=== PATIENT | male | born 1955 | race Caucasian/White ===

== ENCOUNTER 2019-06-19 10:26 | Day surgery (SDC) | payer OTHER ==
[2019-06-18 12:53] VITALS: BMI 38.7
[~2019-06-19 10:26] MED LIST: GENTAMICIN SO4 80 MG/2 ML VIAL IVPB ONE
[2019-06-19] MEDS ORDERED: PROPOFOL 20 ML ONE ×2 (13:29→15:32)
[2019-06-19] MEDS ORDERED: MIDAZOLAM HCL 2 MG/2 ML SINGLE DOSE VIAL ONE ×2 (13:29→13:45)
[2019-06-19] MEDS ORDERED: ceFAZolin SODIUM 1 GM VIAL IVPB ONE (14:44)
[2019-06-19] MEDS ORDERED: oxyCODONE HCL 5 MG TABLET PO PRN (15:42)
[2019-06-19] MEDS ORDERED: ACETAMINOPHEN 325 MG TABLET (FP) PO PRN (15:42)
[2019-06-19] MEDS ORDERED: ONDANSETRON 4 MG/2 ML VIAL IVPUSH PRN (15:42)
--- NOTE | 2019-06-19 16:04 | OP ---
Operative Note - Note: Operative Date: 06/19/19 Pre-Operative Diagnosis: Bladder stone and BPH w/ obstruction Operation: Cystoscopy/TUVP/TURP Findings: Trilobor hypertrophy of prostate/lateral lobe kissing/grade II trabeculation of bladder. No stone visualized. Post-Operative Diagnosis: Same as Pre-op Surgeon: Ochoa Hayes Anesthesia: Spinal Specimens Removed: Urine and prostate chips Drains & Tubes with Location: [address] 30 [address] cordova w/ CBI Operative Report Dictated: Yes
--- NOTE | 2019-06-19 18:56 | CONS ---
DATE OF CONSULTATION: DATE OF DICTATION: 06/19/2019 HISTORY: Patient is a 63-year-old with a history of prostatism including frequency, urgency, hesitancy, terminal dribbling, and feelings of incomplete bladder emptying. He did undergo a cysto laser vaporization in 2016. A repeat cystoscopy in the office revealed recurrent prostatic hypertrophy with a 2-cm bladder stone. There was also a grade 2 trabeculation of the bladder. Therefore, the patient is admitted to undergo a cystourethroscopy, cysto laser lithotripsy, and vaporization of the prostate. He does have history of hepatitis C. ALLERGIES: He denies any allergies. PAST MEDICAL HISTORY: He denies any diabetes, hypertension, COPD, atrial fibrillation, coronary artery disease, or dyslipidemia. Has underneath meniscal surgery of the right knee. MEDICATIONS: Presently he is on Flomax and Myrbetriq. PHYSICAL EXAMINATION: General: Reveals a well-developed, adult male in no apparent distress. Neck: Supple. There is no JVD. Chest: Clear to auscultation and percutaneous. Heart: Regular rhythm. Abdomen: Soft, globus, nontender. No organomegaly. Bowel sounds are normoactive. The bladder is not distended. Genitourinary: Genitalia are those of a normal adult male. Meatus adequate. Testes normal in size and consistency. No hernias or hydroceles are evident. Extremities: Reveal full range of motion with no clubbing, cyanosis, or edema. A urinalysis was positive for blood. A cystoscopy performed on March 10, 2019, revealed a 2-cm bladder stone with a large, recurrent, obstructing prostate gland and a grade 2 bladder trabeculation. Presently, the prostate is 2+, smooth, benign, and nontender. Saddle sensation is present. Bulbocavernosus reflex is brisk. The patient's BUN 11, creatinine 0.8. His PSA is 2.88. IMPRESSION: At present is symptomatic benign prostatic hypertrophy with a large bladder stone. PLAN: Cystourethroscopy, cysto laser lithotripsy, and transurethral vaporization of the prostate. This was explained fully and in detail with the patient, and he agrees. Hitesh [id number]
--- NOTE | 2019-06-19 18:56 | OP ---
DATE OF OPERATION: 06/19/2019 PREOPERATIVE DIAGNOSIS: Bladder stone, prostatic hypertrophy with obstruction. POSTOPERATIVE DIAGNOSIS: Prostate hypertrophy with obstruction, no stones seen. OPERATIVE PROCEDURE: Under general anesthesia, patient prepped and draped in the usual sterile manner. He is placed in the dorsal lithotomy position. Cystoscopy was performed under direct vision. Urethra was within normal limits. Prostatic urethra revealed trilobar hypertrophy of the prostate. There was lateral lobe kissing. The bladder was entered. The urine was collected for culture as well as cytology. Inspection of the bladder revealed a grade 2-3 trabeculation throughout. No lesions were noted, no calculi were seen. Extensive exploration was performed looking for a bladder stone but none was seen. Therefore, a resectoscope was inserted. The prostate was resected in the usual fashion from the 6 o'clock position to the 12 o'clock position of the right lateral lobe. Lastly, the median lobe was resected from the 6 o'clock position to the 12 o'clock position. The median lobe was also resected. Prostate chips were evacuated with an Ellik evacuator. Hemostasis was secured with electrocoagulation. The bladder was emptied, scope was removed. The 24-Kenyan, 30-cc, 3-way Jon was inserted. This was connected to continuous bladder irrigation. The patient tolerated the procedure well. He returned to the recovery room in good condition. Hitesh [id number]
[2019-06-19] MEDS: LACTATED RINGERS SOLUTION 1,000 ML IV SCH (20:52)
[2019-06-20] MEDS: LACTATED RINGERS SOLUTION 1,000 ML IV SCH (05:48)
[2019-06-20] MEDS: oxyCODONE HCL 5 MG TABLET PO PRN ×2 (05:49→11:25)
[2019-06-20 15:41] VITALS: BP 137/97; PULSE 62; TEMP 98.9
--- NOTE | 2019-06-25 11:08 | PATH ---
Surgical Pathology Report Patient Name: TYREL IGLESIAS [facility]. Rec. #: [id number] /Age/Gender: 1955 (Age: 63) / M Account: [id number] Location: AMBULATORY SURG Taken: 06/19/2019 Received: 06/22/2019 Reported: 06/25/2019 Physicians: Rhea Hayes Specimen(s) Received PROSTATE CHIPS Clinical History Hypertrophy of prostate/bladder stone Final Diagnosis PROSTATE CHIPS, TRANSURETHRAL RESECTION OF THE PROSTATE: BENIGN PROSTATIC TISSUE WITH GLANDULAR AND STROMAL HYPERPLASIA, ACUTE AND CHRONIC PROSTATITIS. ADJACENT UROTHELIAL MUCOSA WITH CHRONIC INFLAMMATION. Electronically Signed Sally De Leon M.D. Gross Description Received in formalin labeled "prostate chips," is a 6 g, 6.5 x 5.5 x 0.6 cm aggregate of multiple graham, firm to rubbery portions of tissue, consistent with prostate chips. The specimen is entirely submitted in 6 cassettes. /06/22/2019 saudi06/22/2019
== END 2019-06-20 16:00 | disposition home or self-care (01) ==
LOC: JASUSAT 10:26 → JASU-SURG 10:26 → J5S 18:29 → JASUSAT 06-20 16:00
PROVIDERS: ATTEND Urology
PROC: 0VT08ZZ Resection of Prostate, Via Natural or Artificial Opening Endoscopic (ICD-10-PCS; principal; 2019-06-19 13:00)
DX: N40.1 Benign prostatic hyperplasia with lower urinary tract symptoms (principal)
CPT/HCPCS: 94010; 94760

== ENCOUNTER 2021-05-31 05:08 | Emergency (ER) | payer OTHER ==
[2021-05-31 05:34] VITALS: BMI 41.6
[2021-05-31 06:39] LABS: BASO % 0.7 % (0-2.0); EOS % 3.4 % (0-4.5); HEMATOCRIT 43.9 % (35.4-49); LYMPH % 37.6 % (8-40); MCH 30.2 pg (25.7-33.7); MCHC 34.2 g/dl (32.0-35.9); MEAN CELL VOLUME 88.3 fl (80-96); MEAN PLT VOLUME 8.3 fl (7.5-11.1); MONO % 7.5 % (3.8-10.2); NEUT % 50.8 % (42.8-82.8); PLATELET COUNT 197 10^3/uL (134-434); RBC 4.97 M/mm3 (4.00-5.60); RDW 12.8 % (11.9-15.9); WHITE BLOOD COUNT 6.2 K/mm3 (4.0-10.0)
[2021-05-31 06:41] LABS: EPI CELLS 1 /uL (0-25.1); HYALINE CASTS 1 /uL (0-3.1); URINE APPEARANCE CLEAR; URINE BACTERIA 0 /uL (0-1359); URINE BILIRUBIN NEGATIVE (NEGATIVE); URINE COLOR YELLOW; URINE GLUCOSE (UA) NEGATIVE (NEGATIVE); URINE KETONE NEGATIVE (NEGATIVE); URINE LEUK ESTERASE NEGATIVE (NEGATIVE); URINE NITRITE NEGATIVE (NEGATIVE); URINE PROTEIN NEGATIVE (NEGATIVE); URINE RBC 675 /uL (0-23.9); URINE UROBILINOGEN 0.2 mg/dL (0.2-1.0); URINE WBC 5 /uL (0-25.8)
[2021-05-31 06:59] LABS: CALCIUM 8.7 mg/dL (8.5-10.1)
[2021-05-31 07:00] LABS: ALBUMIN 3.8 g/dl (3.4-5.0); BLOOD UREA NITROGEN 13.8 mg/dL (7-18)
[2021-05-31 07:03] LABS: CREATININE 0.7 mg/dL (0.55-1.3)
[2021-05-31 07:05] LABS: BILIRUBIN,TOTAL 0.5 mg/dL (0.2-1); TOT PROT 7.3 g/dl (6.4-8.2)
[2021-05-31 12:03] VITALS: BP 146/87; PULSE 62; TEMP 97.7
== END 2021-05-31 12:04 | disposition home or self-care (01) ==
LOC: JER 05:08
DX: R31.9 Hematuria, unspecified (principal)
CPT/HCPCS: 36415; 74176-TC; 80053; 81003; 85025; 87086; 99284-25

== ENCOUNTER 2021-10-16 23:01 | Inpatient (IN) | payer OTHER ==
[2021-10-16] MEDS ORDERED: ASPIRIN 81 MG CHEWABLE TABLETS PO ONE (23:37)
[2021-10-17] MEDS ORDERED: ASPIRIN 81 MG CHEWABLE TABLETS ONE ×2 (00:07→03:59)
[2021-10-17 00:10] LABS: BASO % 0.3 % (0-2.0); EOS % 0.7 % (0-4.5); HEMATOCRIT 44.3 % (35.4-49); HEMOGLOBIN 15.1 GM/dL (11.7-16.9); MCH 29.6 pg (25.7-33.7); MCHC 34.1 g/dl (32.0-35.9); MEAN CELL VOLUME 86.6 fl (80-96); MEAN PLT VOLUME 8.6 fl (7.5-11.1); MONO % 7.3 % (3.8-10.2); NEUT % 75.7 % (42.8-82.8); PLATELET COUNT 213 10^3/uL (134-434); RBC 5.12 M/mm3 (4.00-5.60); RDW 13.2 % (11.9-15.9); WHITE BLOOD COUNT 11.2 K/mm3 (4.0-10.0)
[2021-10-17 00:34] LABS: BLOOD UREA NITROGEN 14.6 mg/dL (7-18); CALCIUM 8.9 mg/dL (8.5-10.1)
[2021-10-17 00:35] LABS: CREATININE 0.6 mg/dL (0.55-1.3)
[2021-10-17 00:37] LABS: BILIRUBIN,TOTAL 0.6 mg/dL (0.2-1); TOT PROT 7.8 g/dl (6.4-8.2)
[2021-10-17 00:44] LABS: INR 1.03 (0.83-1.09); PROTHROMBIN TIME (PATIENT) 11.8 SEC (9.7-13.0)
[2021-10-17 00:45] LABS: ACTIVATED PTT 32.6 SECONDS (25.2-36.5)
[2021-10-17] MEDS ORDERED: IBUPROFEN 400 MG TABLET (FP) PO ONE ×2 (02:14→02:23)
[2021-10-17] MEDS ORDERED: ASPIRIN 81 MG CHEWABLE TABLETS PO ONE (03:43)
[2021-10-17] MEDS ORDERED: SODIUM CHLORIDE 1,000 ML IV STA (03:53)
[2021-10-17] MEDS ORDERED: SODIUM CHLORIDE 1,000 ML IV SCH (04:15)
[2021-10-17] MEDS ORDERED: COLCHICINE 0.6 MG TAB ONE ×2 (04:25→09:39)
[2021-10-17] MEDS: COLCHICINE 0.6 MG TAB PO SCH ×3 (04:29→22:35)
[2021-10-17] MEDS ORDERED: IBUPROFEN 600 MG TABLET (FP) PO ONE ×2 (06:29→14:10)
[2021-10-17] MEDS: IBUPROFEN 600 MG TABLET (FP) PO SCH ×3 (06:35→22:35)
[2021-10-17 08:59] LABS: BLOOD UREA NITROGEN 13.5 mg/dL (7-18)
[2021-10-17 09:00] LABS: ALBUMIN 3.6 g/dl (3.4-5.0)
[2021-10-17 09:01] LABS: CREATININE 0.7 mg/dL (0.55-1.3)
[2021-10-17 09:04] LABS: TOT PROT 6.8 g/dl (6.4-8.2)
[2021-10-17 23:02] VITALS: BMI 42.0
[2021-10-18] MEDS: IBUPROFEN 600 MG TABLET (FP) PO SCH ×3 (05:56→21:31)
[2021-10-18 07:25] LABS: BASO % 0.4 % (0-2.0); EOS % 0.8 % (0-4.5); HEMATOCRIT 39.7 % (35.4-49); HEMOGLOBIN 13.3 GM/dL (11.7-16.9); LYMPH % 16.4 % (8-40); MCH 29.6 pg (25.7-33.7); MCHC 33.6 g/dl (32.0-35.9); MEAN CELL VOLUME 88.3 fl (80-96); MEAN PLT VOLUME 8.8 fl (7.5-11.1); MONO % 11.5 % (3.8-10.2); NEUT % 70.9 % (42.8-82.8); PLATELET COUNT 184 10^3/uL (134-434); RBC 4.49 M/mm3 (4.00-5.60); RDW 13.6 % (11.9-15.9); WHITE BLOOD COUNT 10.7 K/mm3 (4.0-10.0)
[2021-10-18 07:53] LABS: CALCIUM 8.4 mg/dL (8.5-10.1)
[2021-10-18 07:55] LABS: MAGNESIUM 2.2 mg/dL (1.8-2.4)
[2021-10-18 07:57] LABS: CREATININE 0.7 mg/dL (0.55-1.3); PHOSPHOROUS 2.5 mg/dL (2.5-4.9)
[2021-10-18 08:18] LABS: INR 1.12 (0.83-1.09); PROTHROMBIN TIME (PATIENT) 12.9 SEC (9.7-13.0)
[2021-10-18] MEDS: COLCHICINE 0.6 MG TAB PO SCH ×2 (09:41→21:31)
[2021-10-18] MEDS: HEPARIN NA (PORCINE) 5,000 UNITS/ML 1ML VIAL SQ SCH ×2 (14:29→21:31)
[2021-10-19] MEDS: HEPARIN NA (PORCINE) 5,000 UNITS/ML 1ML VIAL SQ SCH ×3 (06:17→22:17)
[2021-10-19] MEDS: IBUPROFEN 600 MG TABLET (FP) PO SCH ×3 (06:17→22:18)
[2021-10-19 07:31] LABS: BASO % 0.3 % (0-2.0); EOS % 1.9 % (0-4.5); HEMATOCRIT 37.8 % (35.4-49); HEMOGLOBIN 12.7 GM/dL (11.7-16.9); LYMPH % 22.6 % (8-40); MCH 29.6 pg (25.7-33.7); MCHC 33.6 g/dl (32.0-35.9); MEAN CELL VOLUME 87.9 fl (80-96); MONO % 9.1 % (3.8-10.2); NEUT % 66.1 % (42.8-82.8); PLATELET COUNT 219 10^3/uL (134-434); RDW 13.5 % (11.9-15.9); WHITE BLOOD COUNT 8.7 K/mm3 (4.0-10.0)
[2021-10-19 07:56] LABS: CALCIUM 8.4 mg/dL (8.5-10.1)
[2021-10-19 08:01] LABS: CREATININE 0.6 mg/dL (0.55-1.3)
[2021-10-19] MEDS: COLCHICINE 0.6 MG TAB PO SCH ×2 (09:23→22:17)
[2021-10-20] MEDS: IBUPROFEN 600 MG TABLET (FP) PO SCH ×2 (06:03→13:50)
[2021-10-20] MEDS: HEPARIN NA (PORCINE) 5,000 UNITS/ML 1ML VIAL SQ SCH ×2 (06:04→13:50)
[2021-10-20 08:06] LABS: BASO % 0.4 % (0-2.0); EOS % 2.8 % (0-4.5); HEMATOCRIT 35.6 % (35.4-49); HEMOGLOBIN 12.2 GM/dL (11.7-16.9); LYMPH % 22.9 % (8-40); MCH 29.8 pg (25.7-33.7); MCHC 34.2 g/dl (32.0-35.9); MEAN CELL VOLUME 87.2 fl (80-96); MEAN PLT VOLUME 8.1 fl (7.5-11.1); MONO % 8.9 % (3.8-10.2); PLATELET COUNT 254 10^3/uL (134-434); RBC 4.09 M/mm3 (4.00-5.60); RDW 13.4 % (11.9-15.9); WHITE BLOOD COUNT 7.7 K/mm3 (4.0-10.0)
[2021-10-20 08:34] LABS: CALCIUM 8.4 mg/dL (8.5-10.1)
[2021-10-20 08:36] LABS: BLOOD UREA NITROGEN 18.2 mg/dL (7-18)
[2021-10-20 08:38] LABS: CREATININE 0.7 mg/dL (0.55-1.3)
[2021-10-20] MEDS: COLCHICINE 0.6 MG TAB PO SCH (11:01)
[2021-10-20 16:12] VITALS: BP 138/81; PULSE 87; TEMP 97.7
== END 2021-10-20 18:31 | disposition home or self-care (01) | DRG 207 ==
LOC: JER 23:01 → JERBED 10-17 02:25 → J4W 10-17 22:24
PROVIDERS: ADMIT Internal Medicine; ATTEND Internal Medicine
DX: I30.9 Acute pericarditis, unspecified (principal); I31.4 Cardiac tamponade; I95.9 Hypotension, unspecified; Z68.41 Body mass index [BMI] 40.0-44.9, adult; K76.0 Fatty (change of) liver, not elsewhere classified; E66.9 Obesity, unspecified; J98.11 Atelectasis; R07.2 Precordial pain; I31.9 Disease of pericardium, unspecified
CPT/HCPCS: 36415; 71045-TC-FY; 71275-TC; 80048; 80053; 82962; 83605; 83735; 83880; 84100; 84484; 85025; 85610; 85651; 85730; 86038; 86140; 93005; 93010; 93306-TC; 99285-25; C9803-CS; J1644; U0003; U0005